=== PATIENT | female | born 1995 | race Caucasian/White ===

== ENCOUNTER 2018-12-23 14:49 | Emergency (ER) | payer MEDICAID ==
[~2018-12-23] VITALS: Ht 157.5 cm; Wt 102.1 kg
[2018-12-23 14:51] VITALS: Ht 157.5 cm; Wt 102.1 kg
[2018-12-23] MEDS ORDERED: LIDOCAINE/MYLANTA 40 ML BTL PO STA (18:36)
[2018-12-23] MEDS ORDERED: ONDANSETRON (ODT) 4 MG TAB ODT STA (18:36)
[2018-12-23] MEDS ORDERED: FAMOTIDINE 20 MG TAB PO STA (18:36)
--- NOTE | 2018-12-23 18:56 | ERD ---
ER Documentation Chief Complaint Chief Complaint R AP pain X 3 days, Hx gallstones HPI This is a 23-year-old female with a history of gallstones presents ED with right upper quadrant abdominal pain that is been present for the past 3 days. Patient states the pain comes and goes and radiates to her back. Patient states the pain is alleviated by lying down. Patient wants to nausea with one episode of vomiting. Patient states that she had surgery 3 years ago but is unsure if she had her gallbladder removed. Denies fever, chills, diarrhea, constipation, hematemesis, melena, nausea, vaginal pain, vaginal discharge, chest pain, shortness breath and all other symptoms. No known drug allergies ROS All systems reviewed and are negative except as per history of present illness. Medications Home Meds No Active Prescriptions or Reported Meds Allergies Allergies: Coded Allergies: No Known Allergies (Verified Allergy, Mild, 12/23/18) PMhx/Soc History of Surgery: Yes (gallbladder) Anesthesia Reaction: No Hx Neurological Disorder: No Hx Respiratory Disorders: No Hx Cardiac Disorders: No Hx Psychiatric Problems: No Hx Miscellaneous Medical Probl: No Hx Alcohol Use: No Hx Substance Use: No Hx Tobacco Use: No Smoking Status: Never smoker Physical Exam Vitals Vital Signs Date Temp Pulse Resp B/P (MAP) Pulse Ox O2 O2 Flow FiO2 Time Delivery Rate 12/23/18 98.6 107 18 163/96 98 14:51 (118) Physical Exam Physical Exam Vitals signs: Reviewed by me. General: Well developed, well nourished, in no acute distress. Patient is awake and alert. Head: Normocephalic, atraumatic. Eyes: Normal conjunctiva, Pupils PERRLA, EOM intact grossly ENT: Pharynx is clear, Moist mucous membranes, external ears, nose and mouth nor mal Neck: Supple, no masses, lymphadenopathy or JVD Respiratory: Clear to auscultation bilaterally with no wheezing, rhonchi, rales, no distress Cardiovascular: RRR, no murmurs, rubs, or gallops Abdominal: Soft, obese, surgical scars seen in patients right side of abdomen, bowel sounds present all 4 quadrants, no peritoneal signs, no rigidity, no surgical abdomen, nontender light deep palpation all 4 quadrants, no rebound tenderness, McBurney's point nontender : Deferred MSK: No edema, no unilateral swelling, 5/5 strength Back: No midline tenderness. No flank tenderness Neurologic: Alert and oriented, moving all extremities, normal speech, no focal weakness, no cerebellar signs. Normal mentation Skin: warm and dry, No rash Psych: Normal mood Result Diagram: 12/23/18191312/23/181913 Results 24 hrs Laboratory Tests Test 12/23/18 18:40 12/23/18 18:58 12/23/18 19:14 Urine Color YELLOW Urine Clarity CLOUDY Urine pH 6.0 Urine Specific [place] 1.027 Urine Ketones NEGATIVE mg/dL Urine Nitrite NEGATIVE mg/dL Urine Bilirubin NEGATIVE mg/dL Urine Urobilinogen NEGATIVE mg/dL Urine Leukocyte Esterase 1+ Kacie/ul Urine Microscopic RBC 8 /HPF Urine Microscopic WBC 7 /HPF Urine Squamous Epithelial Cells FEW /HPF Urine Bacteria FEW /HPF Urine Mucus MODERATE /HPF Urine Hemoglobin NEGATIVE mg/dL Urine Glucose NEGATIVE mg/dL Urine Total Protein NEGATIVE mg/dl POC Beta HCG, Qualitative NEGATIVE White Blood Count 9.6 10^3/ul Red Blood Count 4.96 10^6/ul Hemoglobin 14.3 g/dl Hematocrit 43.8 % Mean Corpuscular Volume 88.3 fl Mean Corpuscular Hemoglobin 28.8 pg Mean Corpuscular 32.6 g/dl Hemoglobin Concent Red Cell Distribution Width 12.8 % Platelet Count 491 10^3/UL Mean Platelet Volume 9.7 fl Immature Granulocytes % 0.400 % Neutrophils % 49.7 % Lymphocytes % 40.2 % Monocytes % 7.0 % Eosinophils % 2.1 % Basophils % 0.6 % Nucleated Red Blood Cells % 0.0 /100WBC Immature Granulocytes # 0.040 10^3/ul Neutrophils # 4.8 10^3/ul Lymphocytes # 3.8 10^3/ul Monocytes # 0.7 10^3/ul Eosinophils # 0.2 10^3/ul Basophils # 0.1 10^3/ul Nucleated Red Blood Cells # 0.0 10^3/ul Sodium Level 143 mmol/L Potassium Level 3.8 mmol/L Chloride Level 107 mmol/L Carbon Dioxide Level 25 mmol/L Anion Gap 11 Blood Urea Nitrogen 12 mg/dl Creatinine 0.71 mg/dl Est Glomerular Filtrat > 60 mL/min Rate mL/min Glucose Level 93 mg/dl Calcium Level 9.9 mg/dl Total Bilirubin 0.3 mg/dl Direct Bilirubin 0.00 mg/dl Indirect Bilirubin 0.3 mg/dl Aspartate Amino Transf (AST/SGOT) 46 IU/L Alanine 62 IU/L Aminotransferase (ALT/SGPT) Alkaline Phosphatase 104 IU/L Total Protein 9.6 g/dl Albumin 4.9 g/dl Globulin 4.70 g/dl Albumin/Globulin Ratio 1.04 Lipase 114 U/L Current Medications Medications Dose Sig/Valerie Start Time Status Last (Trade) Ordered Route PRN Stop Time Admin Dose Reason Admin Famotidine 20 mg ONCE STAT 12/23/18 DC 12/23/18 (Pepcid) PO 18:36 12/23/18 18:47 18:38 40 ml ONCE STAT 12/23/18 DC Miscellaneous PO 18:36 12/23/18 Medication 18:38 (Gi Cocktail (2)) Ondansetron 4 mg ONCE STAT 12/23/18 DC 12/23/18 HCl (Zofran ODT 18:36 12/23/18 18:47 Odt) 18:38 Procedures/MDM EKG, MONITORS, & DIAGNOSTIC IMAGING: [place] [id number] Radiology Main Line: [phone] DIAGNOSTIC IMAGING REPORT Patient: PETRA MCKINNON : 1995 Age: 23 Sex: F MR #: [id number] DOS: 12/23/18 1836 Ordering MD: ABDOUL ALVAREZ PA-C Location: [facility] Room/Bed: PROCEDURE: US Abdomen. CLINICAL INDICATION: Abdominal pain TECHNIQUE: Multiple real-time images were acquired of the patient's abdomen and retroperitoneum utilizing a high resolution transducer. COMPARISON: US ABDOMEN 10/21/2014 FINDINGS: The liver demonstrates increased echogenicity. The liver is normal in size and no focal solid lesions are seen. The liver measures 15.7 cm in length. The portal vein is patent with normal direction of flow. No intrahepatic biliary dilatation is seen. No gallstones are identified within the gallbladder. There is no pericholecystic fluid or gallbladder wall thickening. The common bile duct measures 3.3 mm in maximal dimension. The pancreas is not well seen due to overlying bowel gas. No free fluid is identified. The right kidney is normal in size, and demonstrate normal echogenicity and cortical thickness. The right kidney measures 10.4 cm in long dimension. There is no evidence of hydronephrosis. There are no kidney stones. IMPRESSION: Fatty infiltration of the liver.. Status post cholecystectomy. RPTAT: AA .Tj Jolly MD, MD Date Time Electronically viewed and signed by .Tj Jolly MD, MD on 12/23/2018 19:28 .S/ CC: ABDOUL ALVAREZ PA-C [id number] LAB INTERPRETATION: CBC shows no evidence of hemorrhage or infection Chemistry shows no evidence of significant electrolyte abnormalities or renal insufficiency Liver function test shows no evidence of acute biliary or hepatic dysfunction Lipase shows no evidence of acute pancreatitis Urine negative Urinalysis remarkable for 7 microscopic wbc, 8 RBCs, 1+ leukocyte esterase ER COURSE: The patient was given GI cocktail and famotidine The medication was well tolerated and the patient reports improvement in symptoms. The patient was stable throughout ED course. I kept the patient and/or family informed of laboratory and diagnostic imaging results throughout the emergency room course. The patient was promptly evaluated and a treatment plan was devised based on H&P and other data. This plan was discussed with the patient who agreed and had no further questions or concerns prior to discharge. MEDICAL DECISION MAKING: This is a 23-year-old female with a history of gallstones presents ED with right upper quadrant abdominal pain that is been present for the past 3 days. Non- woman presenting with abdominal pain. test is negative. Considered causes of female-specific abdominal pain including pelvic inflammatory disease, tubo-ovarian abscess, Fzzt-Vuau-Fqzqit, and ovarian torsion. Also considered causes of abdominal pain that are not gender-specific (e.g., appendicitis, volvulus, small bowel obstruction, mesenteric adenitis, acute cholecystitis/choledocholithiasis and other biliary pathology, etc.). Patient well-appearing with normal vital signs. No peritoneal signs and abdomen benign on multiple repeat examinations. Pt well hydrated. Urinalysis is remarkable for WBCs and leukocyte esterase. will treat for uti. otherwise Laboratory testing and imaging here reviewed and normal. Patient given strict return precautions for worsening pain, inability to eat/drink, fevers (temperature over 100.4F), or other concerns. Prior to discharge all questions answered. She agrees with treatment plan and understands strict return precautions. Follow-up for repeat abdominal exam within 12 hours. DISPOSITION PLAN: We discussed follow up with the patient's primary care doctor within 24 to 48 hours. Patient counseled regarding my diagnostic impression and care plan. Prior to discharge all questions answered. Pt agrees with treatment plan and understands strict return precautions. Precautionary instructions provided including instructions to return to the ER if not improving or for any worsening or changing symptoms or concerns. SPECIALIST FOLLOW UP RECOMMENDED: None Patient has been advised to follow up with primary care in 1-2 days. Disclaimer: Inadvertent spelling and grammatical errors are likely due to EHR/dictation software use and do not reflect on the overall quality of patient care. Also, please note that the electronic time recorded on this note does not necessarily reflect the actual time of the patient encounter. Departure Diagnosis: Primary Impression: Abdominal pain Abdominal location: right upper quadrant Qualified Codes: R10.11 - Right upper quadrant pain Additional Impression: UTI (urinary tract infection) Urinary tract infection type: site unspecified Hematuria presence: without hematuria Qualified Codes: N39.0 - Urinary tract infection, site not specified Condition: Stable Patient Instructions: Understanding Urinary Tract Infections (UTIs), Abdominal Pain Referrals: [facility] Additional Instructions: Patient advised to return to the ED immediately for new or worsening symptoms. Patient advised to follow up with primary care provider in the next 24-48 hours. Patient verbalized understanding and agrees with treatment plan and course of action. If patient has no primary care they may follow up with one of the community clinics listed on the following page or one of the options listed below [facility] + [facility] [address] [place] [id number] or [facility] [address] [place] [address] or [facility] [address] [place] [address] ABDOUL ALVAREZ PA-C Dec 23, 2018 18:55
[2018-12-23 20:00] VITALS: BP 158/94; PULSE 81; RESP 18
[2018-12-23] MEDS ORDERED: CEPH-443 PO (20:07)
[2018-12-23] MEDS ORDERED: FAMO-96 PO (20:07)
== END 2018-12-23 20:35 | disposition home or self-care (01) ==
LOC: FTE 14:49
DX: N39.0 Urinary tract infection, site not specified (principal)
CPT/HCPCS: 36415; 76705; 80053; 81001; 81025; 83690; 85025; Z7502; Z7610

== ENCOUNTER 2019-03-21 16:49 | Emergency (ER) | payer BC, MEDICAID ==
[~2019-03-21] VITALS: Ht 157.5 cm; Wt 104.1 kg
[~2019-03-21 16:49] MED LIST: CEPH-443 PO; FAMO-96 PO
[2019-03-21 16:57] VITALS: Ht 157.5 cm; Wt 104.1 kg
--- NOTE | 2019-03-21 17:53 | ERD ---
ER Documentation Chief Complaint Chief Complaint left ear pain radiating to side of face x3 days HPI 23-year-old female with no prior medical history presents with complaint of pain in her left ear for the past 3 days. Patient denies any treatments. Patient denies any current fevers. Patient denies any hearing loss, discharge from the ear, redness behind the ear, headache, chills. ROS All systems reviewed and are negative except as per history of present illness. Medications Home Meds Active Scripts Ibuprofen* (Motrin*) 600 Mg Tab, 600 MG PO Q6, #30 TAB Prov:NAHED DIAMOND 03/21/19 Carbamide Peroxide* (Debrox*) 6.5% -15 Ml Drops, 10 DROP LEFT EAR BID, #1 EA Prov:NAHED DIAMOND 03/21/19 Famotidine* (Pepcid*) 20 Mg Tablet, 20 MG PO BID for 4 Days, TAB Prov:ABDOUL ALVAREZ PA-C 12/23/18 Cephalexin* (Keflex*) 500 Mg Capsule, 500 MG PO BID for 7 Days, CAP Prov:ABDOUL ALVAREZ PA-C 12/23/18 Allergies Allergies: Coded Allergies: No Known Allergies (Verified Allergy, Mild, 12/23/18) PMhx/Soc History of Surgery: Yes (gallbladder) Anesthesia Reaction: No Hx Neurological Disorder: No Hx Respiratory Disorders: No Hx Cardiac Disorders: No Hx Psychiatric Problems: No Hx Miscellaneous Medical Probl: No Hx Alcohol Use: No Hx Substance Use: No Hx Tobacco Use: No FmHx Family History: No diabetes, No coronary disease, No other Physical Exam Vitals Vital Signs Date Temp Pulse Resp B/P (MAP) Pulse Ox O2 O2 Flow FiO2 Time Delivery Rate 03/21/19 98.8 75 18 128/62 98 Room Air 19:23 (84) 03/21/19 98.8 102 18 120/60 98 16:57 (80) Physical Exam Const: No acute distress Head: Atraumatic Eyes: Normal Conjunctiva ENT: Normal External Ears, Nose and Mouth. Left ear canal is occluded with cerumen. There is no erythema, edema, or tenderness palpation of the mastoid regions bilaterally. Neck: Full range of motion. No meningismus. Resp: Clear to auscultation bilaterally Cardio: Regular rate and rhythm, no murmurs Abd: Soft, non tender, non distended. Normal bowel sounds Skin: No petechiae or rashes Back: No midline or flank tenderness Ext: No cyanosis, or edema Neur: Awake and alert Psych: Normal Mood and Affect Results 24 hrs Current Medications Medications Dose Sig/Valerie Start Time Status Last (Trade) Ordered Route PRN Stop Time Admin Dose Reason Admin Carbamide 1 drop ONCE ONCE 03/21/19 DC Peroxide LEFT EAR 18:00 03/21/19 (Debrox Otic) 18:01 Procedures/MDM MDM: Left ear was irrigated with peroxide and an attempt was made to remove the cerumen but was unsuccessful. I advised patient that given the difficulty of removing the cerumen she would be best served by following up an ENT. Patient understood and agreed to do so. I have low suspicion for ruptured TM, mastoiditis, malignant otitis externa, or any other emergent condition. At this time, patient is stable for discharge and outpatient management. I have instructed the patient to follow-up with his/her primary care physician in 1-2 days. I have discussed with the patient the possibility of needing to see a specialist for further workup and imaging studies if symptoms persist. I have instructed the patient to promptly return to the ER for any new or worsening symptoms including but not limited to increased pain, fever, nausea, vomiting, weakness or LOC. The patient and/or family expressed understanding of and agreement with this plan. All questions were answered. Home care instructions were provided. DISCLAIMER: Inadvertent spelling and grammatical errors are likely due to EHR/dictation software use and do not reflect on the overall quality of patient care. Also, please note that the electronic time recorded on this note does not necessarily reflect the actual time of the patient encounter. Departure Diagnosis: Primary Impression: Cerumen impaction Condition: Stable NAHED DIAMOND Mar 21, 2019 17:53
[2019-03-21] MEDS ORDERED: CARBAMIDE PEROXIDE 6.5% 15ML OTIC LEFT EAR ONE (18:00)
[2019-03-21] MEDS ORDERED: CARB-155 LEFT EAR (19:15)
[2019-03-21] MEDS ORDERED: IBUP-1542 PO (19:15)
[2019-03-21 19:23] VITALS: BP 128/62; PULSE 75; RESP 18
== END 2019-03-21 19:23 | disposition home or self-care (01) ==
LOC: FTE 16:49
DX: H61.22 Impacted cerumen, left ear (principal)
CPT/HCPCS: 69209; 99283; Z7610